=== PATIENT | male | born 1985 | race Caucasian/White ===

== ENCOUNTER 2017-07-05 23:14 | Emergency (ER) | payer SELFPAY ==
[~2017-07-05] VITALS: Ht 162.6 cm; Wt 65.8 kg
[2017-07-05 23:19] VITALS: BP 154/88
[2017-07-06 01:45] VITALS: BP 147/77
== END 2017-07-06 01:45 | disposition home or self-care (01) ==
LOC: MED 23:14
DX: F45.8 Other somatoform disorders (principal)
CPT/HCPCS: 70360; 71020; 93005; 99284